=== PATIENT | male | born 1980 | race Caucasian/White ===

== ENCOUNTER 2016-11-25 15:03 | Emergency (ER) | payer SELFPAY ==
[~2016-11-25 15:03] MED LIST: Sodium Chloride 0.9% 1,000 ML BAG ONE
[2016-11-25] MEDS ORDERED: Ketorolac Tromethamine 30 MG/ML VIAL ONE (16:49)
[2016-11-25 17:04] LABS: #Basophils 0.1 thou/uL (0.0-0.2); #Lymphocytes 0.8 thou/uL (1.20-3.40); #Monocytes 0.8 thou/uL (0.11-0.59); #Neutrophils 5.6 thou/uL (1.40-6.50); %Basophils 0.8 % (0.0-1.0); %Eosinophils 0.6 % (0.0-10.0); %Lymphocytes 11.4 % (21.0-51.0); %Neutrophils 76.3 % (42.0-75.0); Hemoglobin 15.2 g/dL (14.0-18.0); Mean Corpuscular HGB CONC 34.5 g/dL (32.0-36.0); Mean Corpuscular Hemoglobin 31.8 pg (27.0-31.0); Mean Corpuscular Volume 92.2 fl (80.0-94.0); Mean Platelet Volume 7.8 fL (7.4-10.4); Platelet Count 168 thou/uL (130-400); RBC Distribution Width 11.7 % (11.5-14.5); Red Blood Cell (RBC) Count 4.78 mill/uL (4.70-6.10); White Blood Cell (WBC) Count 7.4 thou/uL (4.8-10.8)
[2016-11-25 17:16] LABS: ALT (SGPT) 19 U/L (0-55); AST (SGOT) 23 U/L (5-34); Albumin 4.3 g/dL (3.5-5.0); Alkaline Phosphatase 63 U/L (40-150); Anion Gap 20 mmol/L (10-20); BUN (Urea Nitrogen) 15 mg/dL (8.9-20.6); Bilirubin, Total 1.4 mg/dL (0.2-1.2); Calc. Creatinine Clearance 0 mL/min (70-130); Calcium 9.3 mg/dL (7.8-10.44); Carbon Dioxide 20 mmol/L (22-29); Chloride 103 mmol/L (98-107); Estimated GFR-MDRD 85; Globulin 3.4 g/dL (2.4-3.5); Glucose 90 mg/dL (70-105); Potassium 3.8 mmol/L (3.5-5.1); Protein, Total 7.7 g/dL (6.0-8.3); Sodium 139 mmol/L (136-145)
== END 2016-11-25 18:00 | disposition home or self-care (01) ==
LOC: MADERS 15:03
DX: J06.9 Acute upper respiratory infection, unspecified (principal); M79.1 Myalgia; F90.9 Attention-deficit hyperactivity disorder, unspecified type; Z87.891 Personal history of nicotine dependence
CPT/HCPCS: 80053; 85025; 96361; 96374; J1885; J7050

== ENCOUNTER 2016-12-08 10:59 | Emergency (ER) | payer SELFPAY ==
[~2016-12-08 10:59] MED LIST changes: -Sodium Chloride 0.9% 1,000 ML BAG ONE; +Sodium Chloride Irrig Solution 250 ML BOT ONE
[2016-12-08] MEDS ORDERED: Bacitracin Zinc 1 Packet ONE (11:16)
[2016-12-08] MEDS ORDERED: Bupivacaine PF 0.5% 30 ML VIAL ONE (11:17)
[2016-12-08] MEDS ORDERED: Adacel (T-DAP) 0.5 ML VIAL ONE (11:17)
[2016-12-08] MEDS ORDERED: Neosporin Ophth Soln 10 ml Bottle ONE (11:48)
[2016-12-08] MEDS ORDERED: Triple Antibiotic Oint 1 GM Packet ONE (11:48)
--- NOTE | 2016-12-08 11:52 | RAD ---
RIGHT INDEX FINGER TWO VIEWS: History: Trauma to finger. FINDINGS: There are no signs of fracture or dislocation. IMPRESSION: No evidence of fracture. POS: [facility]
== END 2016-12-08 12:05 | disposition home or self-care (01) ==
LOC: MADERS 10:59
DX: S61.210A Laceration without foreign body of right index finger without damage to nail, initial encounter (principal); Z87.891 Personal history of nicotine dependence; W31.89XA Contact with other specified machinery, initial encounter
CPT/HCPCS: 64450; 90715; S0020

== ENCOUNTER 2016-12-29 11:20 | Emergency (ER) | payer SELFPAY ==
[2016-12-29] MEDS ORDERED: Acetaminophen/Codeine 30-300mg Tablet ONE (11:48)
[2016-12-29] MEDS ORDERED: Adacel (T-DAP) 0.5 ML VIAL ONE (11:48)
[2016-12-29] MEDS ORDERED: Triple Antibiotic Ointment 15 GM TUBE ONE (12:00)
[2016-12-29] MEDS ORDERED: Triple Antibiotic Oint 1 GM Packet ONE (12:00)
== END 2016-12-29 12:10 | disposition home or self-care (01) ==
LOC: MADERS 11:20
DX: S51.811A Laceration without foreign body of right forearm, initial encounter (principal); F90.9 Attention-deficit hyperactivity disorder, unspecified type; Z87.891 Personal history of nicotine dependence; W45.8XXA Other foreign body or object entering through skin, initial encounter
CPT/HCPCS: 12001; 90471; 90715

== ENCOUNTER 2017-08-23 12:30 | Emergency (ER) | payer SELFPAY | END 2017-08-23 13:45 | disposition home or self-care (01) | LOC: MADERS 12:30 | DX: J10.1 Influenza due to other identified influenza virus with other respiratory manifestations (principal); F90.9 Attention-deficit hyperactivity disorder, unspecified type; Z87.891 Personal history of nicotine dependence | CPT/HCPCS: 99406 ==

== ENCOUNTER 2017-09-03 07:50 | Emergency (ER) | payer SELFPAY ==
[~2017-09-03 07:50] MED LIST changes: +Sodium Chloride 0.9% 1,000 ML BAG ONE; +Sodium Chloride 0.9% 100 ML BAG ONE; -Sodium Chloride Irrig Solution 250 ML BOT ONE
[2017-09-03] MEDS ORDERED: Ondansetron HCl/PF 4 MG/2 ML Vial ONE (08:31)
[2017-09-03] MEDS ORDERED: Pantoprazole 40 MG VIAL ONE ×2 (08:31→08:53)
[2017-09-03] MEDS ORDERED: Thiamine HCl 200 MG/2 ML VIAL ONE (08:31)
[2017-09-03 08:40] LABS: #Basophils 0.1 thou/uL (0.0-0.2); #Eosinphils 0.1 thou/uL (0.0-0.7); #Lymphocytes 1.8 thou/uL (1.20-3.40); #Neutrophils 7.3 thou/uL (1.40-6.50); %Basophils 0.7 % (0.0-1.0); %Eosinophils 0.7 % (0.0-10.0); %Lymphocytes 17.4 % (21.0-51.0); %Monocytes 10.1 % (0.0-10.0); Hemoglobin 17.9 g/dL (14.0-18.0); Mean Corpuscular HGB CONC 33.7 g/dL (32.0-36.0); Mean Corpuscular Hemoglobin 31.9 pg (27.0-31.0); Mean Corpuscular Volume 94.8 fl (80.0-94.0); Mean Platelet Volume 8.5 fL (7.4-10.4); Platelet Count 195 thou/uL (130-400); RBC Distribution Width 10.9 % (11.5-14.5); Red Blood Cell (RBC) Count 5.62 mill/uL (4.70-6.10); White Blood Cell (WBC) Count 10.3 thou/uL (4.8-10.8)
[2017-09-03 08:44] LABS: PTT 23.5 SEC (22.9-36.1); Prothrombin Time 13.2 SEC (12.0-14.7)
[2017-09-03 09:06] LABS: ALT (SGPT) 18 U/L (8-55); AST (SGOT) 24 U/L (5-34); Albumin 4.6 g/dL (3.5-5.0); Alkaline Phosphatase 66 U/L (40-150); Anion Gap 17 mmol/L (10-20); BUN (Urea Nitrogen) 20 mg/dL (8.9-20.6); Bilirubin, Total 1.3 mg/dL (0.2-1.2); Calc. Creatinine Clearance 0 mL/min (70-130); Calcium 9.9 mg/dL (7.8-10.44); Carbon Dioxide 30 mmol/L (22-29); Chloride 96 mmol/L (98-107); Estimated GFR-MDRD 74; Globulin 4.5 g/dL (2.4-3.5); Glucose 93 mg/dL (70-105); Potassium 3.8 mmol/L (3.5-5.1); Protein, Total 9.1 g/dL (6.0-8.3); Sodium 139 mmol/L (136-145)
--- NOTE | 2017-09-03 09:58 | RAD ---
FRONTAL RADIOGRAP CHEST UPRIGHT AND SUPINE FRONTAL IMAGING OF ABDOMEN AND PELVIS: Date: 09-03-17 Comparison: Frontal radiograph chest, 09-11-16. History: Nausea, vomiting. FINDINGS: Frontal radiograph chest demonstrates no pneumothorax, pleural fluid, focal consolidation or alveolar edema. Heart and mediastinal contours appear within normal limits. Upright imaging demonstrates no evidence for free intraperitoneal air. The bowel gas pattern appears nonobstructed. No acute osseous abnormality is evident. IMPRESSION: No radiographic evidence of acute cardiopulmonary disease, free intraperitoneal air or small bowel ob struction. POS: [facility]
== END 2017-09-03 09:35 | disposition short-term general hospital (02) ==
LOC: MADERS 07:50
DX: K92.2 Gastrointestinal hemorrhage, unspecified (principal); F90.9 Attention-deficit hyperactivity disorder, unspecified type; Z87.891 Personal history of nicotine dependence
CPT/HCPCS: 74022; 80053; 82274; 85025; 85610; 85730; 86850; 86900; 86901; 96365; 96375; C9113; J2405; J3411; J7050

== ENCOUNTER 2017-11-10 09:44 | Emergency (ER) | payer SELFPAY ==
[2017-11-10] MEDS ORDERED: Acetaminophen 325 MG Suppository ONE (10:10)
[2017-11-10] MEDS ORDERED: Acetaminophen 325 MG TAB ONE (10:11)
[2017-11-10 10:31] LABS: Bilirubin Negative (Negative); Blood, Urine Negative (Negative); Clarity Clear (Clear); Glucose, Urine (Dipstick) Negative (Negative); Leukocyte Negative (Negative); Nitrite Negative (Negative); Protein, Urine (Dipstick) 30 mg/dL (Neg-Trace); pH, Urine 7.5 (5.0-9.0)
[2017-11-10 10:40] LABS: RBC/HPF None Seen HPF (0-3); Squamous Epithelial 0-3 HPF (0-3); WBC/HPF None Seen HPF (0-3)
== END 2017-11-10 11:06 | disposition home or self-care (01) ==
LOC: MADERS 09:44
DX: J11.1 Influenza due to unidentified influenza virus with other respiratory manifestations (principal); G43.909 Migraine, unspecified, not intractable, without status migrainosus; F17.210 Nicotine dependence, cigarettes, uncomplicated; F90.9 Attention-deficit hyperactivity disorder, unspecified type
CPT/HCPCS: 81003; 81015; 99283

== ENCOUNTER 2018-01-20 11:18 | Emergency (ER) | payer SELFPAY ==
[~2018-01-20 11:18] MED LIST changes: -Sodium Chloride 0.9% 100 ML BAG ONE
[2018-01-20] MEDS ORDERED: Ondansetron HCl/PF 4 MG/2 ML Vial ONE (11:44)
[2018-01-20] MEDS ORDERED: diphenhydrAMINE 50 MG/ML VIAL ONE (11:44)
[2018-01-20] MEDS ORDERED: Metoclopramide HCl 10 MG/2 ML VIAL ONE (11:44)
[2018-01-20] MEDS ORDERED: Ketorolac Tromethamine 30 MG/ML VIAL ONE (11:44)
--- NOTE | 2018-01-20 12:16 | CT ---
NONCONTRAST HEAD CT: HISTORY: Trauma and pain for multiple days. The patient fell three days ago, landing on the back of the head. COMPARISON: None. TECHNIQUE: A noncontrast head CT is performed from the skull base to the skull vertex. FINDINGS: No parenchymal hemorrhage. No extraaxial hematoma. No midline shift. The basilar cisterns are gill nt. Brain volume is age appropriate. Cortical rivera white matter differentiation is preserved. The ventricles and sulci are patent and symmetric. The calvarium is intact. No significant opacification of the sinuses or mastoid air cells. There is a nonspecific metallic density inferior and lateral to the right globe. Correlate for forei gn body. IMPRESSION: 1. No intracranial post traumatic sequelae. 2. Metallic foreign body in the inferolateral aspect of the right orbit. Clinical correlation is es sential. POS: [facility]
== END 2018-01-20 13:05 | disposition home or self-care (01) ==
LOC: MADERS 11:18
DX: F07.81 Postconcussional syndrome (principal); G43.909 Migraine, unspecified, not intractable, without status migrainosus; F17.210 Nicotine dependence, cigarettes, uncomplicated; F90.9 Attention-deficit hyperactivity disorder, unspecified type
CPT/HCPCS: 70450; 96361; 96374; 96375; J1200; J1885; J2405; J2765; J7050

== ENCOUNTER 2018-04-17 16:39 | Emergency (ER) | payer SELFPAY ==
[2018-04-17] MEDS ORDERED: AMOXicillin 250 MG CAP ONE (17:34)
[2018-04-17] MEDS ORDERED: Ibuprofen 800 MG TAB ONE (17:34)
== END 2018-04-17 18:40 | disposition home or self-care (01) ==
LOC: MADERS 16:39
DX: K04.7 Periapical abscess without sinus (principal); K02.9 Dental caries, unspecified; K03.81 Cracked tooth; G43.909 Migraine, unspecified, not intractable, without status migrainosus; F90.9 Attention-deficit hyperactivity disorder, unspecified type; F17.210 Nicotine dependence, cigarettes, uncomplicated
CPT/HCPCS: 99282

== ENCOUNTER 2018-05-16 11:09 | Emergency (ER) | payer SELFPAY ==
[2018-05-16] MEDS ORDERED: Ketorolac Tromethamine 60 MG/2 ML VIAL ONE (11:37)
[2018-05-16] MEDS ORDERED: Ondansetron HCl/PF 4 MG/2 ML Vial ONE (11:37)
== END 2018-05-16 12:01 | disposition home or self-care (01) ==
LOC: MADERS 11:09
DX: G43.909 Migraine, unspecified, not intractable, without status migrainosus (principal); F90.9 Attention-deficit hyperactivity disorder, unspecified type; F17.210 Nicotine dependence, cigarettes, uncomplicated
CPT/HCPCS: 96372; J1885; J2405

== ENCOUNTER 2018-06-07 08:37 | Emergency (ER) | payer SELFPAY ==
[2018-06-07] MEDS ORDERED: Fentanyl 100 MCG/2 ML VIAL ONE (09:08)
[2018-06-07] MEDS ORDERED: Ondansetron ODT 4 MG TAB ONE (09:08)
[2018-06-07] MEDS ORDERED: Ketorolac Tromethamine 60 MG/2 ML VIAL ONE (09:08)
[2018-06-07] MEDS ORDERED: Famotidine 20 MG TAB ONE (09:08)
[2018-06-07 09:25] LABS: #Basophils 0.1 thou/uL (0.0-0.2); #Eosinphils 0.1 thou/uL (0.0-0.7); #Lymphocytes 1.4 thou/uL (1.20-3.40); #Monocytes 0.6 thou/uL (0.11-0.59); #Neutrophils 3.2 thou/uL (1.40-6.50); %Basophils 1.1 % (0.0-1.0); %Eosinophils 1.6 % (0.0-10.0); %Lymphocytes 26.1 % (21.0-51.0); %Monocytes 11.8 % (0.0-10.0); %Neutrophils 59.5 % (42.0-75.0); Hemoglobin 14.7 g/dL (14.0-18.0); Mean Corpuscular HGB CONC 33.7 g/dL (32.0-36.0); Mean Corpuscular Hemoglobin 31.1 pg (27.0-31.0); Mean Corpuscular Volume 92.2 fL (78.0-98.0); Mean Platelet Volume 7.6 fL (7.4-10.4); Platelet Count 157 thou/uL (130-400); RBC Distribution Width 10.9 % (11.5-14.5); Red Blood Cell (RBC) Count 4.72 mill/uL (4.70-6.10); White Blood Cell (WBC) Count 5.4 thou/uL (4.8-10.8)
[2018-06-07 09:34] LABS: Anion Gap 13 mmol/L (10-20); BUN (Urea Nitrogen) 12 mg/dL (8.9-20.6); Calc. Creatinine Clearance 0 mL/min (70-130); Calcium 9.2 mg/dL (7.8-10.44); Carbon Dioxide 25 mmol/L (22-29); Chloride 105 mmol/L (98-107); Estimated GFR-MDRD Greater than 90; Glucose 80 mg/dL (70-105); Potassium 4.3 mmol/L (3.5-5.1); Sodium 139 mmol/L (136-145)
== END 2018-06-07 09:55 | disposition home or self-care (01) ==
LOC: MADERS 08:37
DX: K21.0 Gastro-esophageal reflux disease with esophagitis (principal); G43.909 Migraine, unspecified, not intractable, without status migrainosus; F90.9 Attention-deficit hyperactivity disorder, unspecified type; F17.210 Nicotine dependence, cigarettes, uncomplicated
CPT/HCPCS: 36415; 80048; 85025; 96372; J1885; J3010; Q0162

== ENCOUNTER 2018-07-11 06:39 | Emergency (ER) | payer SELFPAY ==
[2018-07-11] MEDS ORDERED: Ondansetron ODT 4 MG TAB ONE (07:03)
[2018-07-11] MEDS ORDERED: Ketorolac Tromethamine 60 MG/2 ML VIAL ONE (07:03)
[2018-07-11] MEDS ORDERED: Prochlorperazine 10 MG/2 ML VIAL ONE (07:03)
[2018-07-11] MEDS ORDERED: diphenhydrAMINE 50 MG/ML VIAL ONE (07:03)
== END 2018-07-11 08:00 | disposition home or self-care (01) ==
LOC: MADERS 06:39
DX: G43.909 Migraine, unspecified, not intractable, without status migrainosus (principal); F90.9 Attention-deficit hyperactivity disorder, unspecified type; F17.210 Nicotine dependence, cigarettes, uncomplicated
CPT/HCPCS: 96372; J0780; J1200; J1885; Q0162

== ENCOUNTER 2018-07-18 12:03 | Emergency (ER) | payer SELFPAY ==
[~2018-07-18 12:03] MED LIST changes: -Sodium Chloride 0.9% 1,000 ML BAG ONE; +Sodium Chloride Irrig Solution 250 ML BOT ONE
[2018-07-18] MEDS ORDERED: Bupivacaine PF 0.5% 30 ML VIAL ONE (12:11)
--- NOTE | 2018-07-18 13:18 | RAD ---
THREE VIEWS RIGHT MIDDLE FINGER: Date: 07-18-18 Comparison: 12-08-16 History: Injury, trauma, pain. FINDINGS: No radiopaque foreign body, acute fracture, or evidence of dislocation. Stable irregularity of the di stal aspect of the distal phalanx suggest a remote fracture. IMPRESSION: No acute fracture or dislocation seen. POS: [facility]
== END 2018-07-18 13:35 | disposition home or self-care (01) ==
LOC: MADERS 12:03
DX: S61.212A Laceration without foreign body of right middle finger without damage to nail, initial encounter (principal); G43.909 Migraine, unspecified, not intractable, without status migrainosus; F90.9 Attention-deficit hyperactivity disorder, unspecified type; F17.210 Nicotine dependence, cigarettes, uncomplicated; W27.0XXA Contact with workbench tool, initial encounter
CPT/HCPCS: 12002; 99406; S0020

== ENCOUNTER 2018-12-22 18:48 | Emergency (ER) | payer SELFPAY ==
[~2018-12-22 18:48] MED LIST changes: +Iopamidol 370 76% 100 ML VIAL ONE; -Sodium Chloride Irrig Solution 250 ML BOT ONE
[2018-12-22] MEDS ORDERED: Ketorolac Tromethamine 30 MG/ML VIAL ONE (18:51)
[2018-12-22] MEDS ORDERED: Ondansetron PF 4 MG/2 ML Vial ONE (18:51)
[2018-12-22] MEDS ORDERED: Mag-Al Plus 1200 MG/1200 MG/120 MG/30 ML UDCUP ONE (18:59)
[2018-12-22] MEDS ORDERED: Lidocaine Viscous Sol 2% 15 ml UD Cup ONE (18:59)
[2018-12-22] MEDS ORDERED: Sodium Chloride 0.9% 1,000 ML ONE (19:07)
[2018-12-22] MEDS ORDERED: Morphine 10 MG/ML VIAL ONE (19:08)
[2018-12-22 19:54] LABS: #Basophils 0.1 thou/uL (0.0-0.2); #Eosinphils 0.1 thou/uL (0.0-0.7); #Lymphocytes 1.8 thou/uL (1.20-3.40); #Monocytes 0.6 thou/uL (0.11-0.59); #Neutrophils 6.9 thou/uL (1.40-6.50); %Basophils 0.7 % (0.0-1.0); %Eosinophils 1.4 % (0.0-10.0); %Lymphocytes 18.6 % (21.0-51.0); %Monocytes 6.5 % (0.0-10.0); %Neutrophils 72.9 % (42.0-75.0); Hemoglobin 16.6 g/dL (14.0-18.0); Mean Corpuscular Hemoglobin 30.7 pg (27.0-31.0); Mean Corpuscular Volume 92.9 fL (78.0-98.0); Mean Platelet Volume 7.9 fL (7.4-10.4); Platelet Count 220 thou/uL (130-400); RBC Distribution Width 11.6 % (11.5-14.5); Red Blood Cell (RBC) Count 5.43 mill/uL (4.70-6.10); White Blood Cell (WBC) Count 9.5 thou/uL (4.8-10.8)
[2018-12-22 20:08] LABS: ALT (SGPT) 28 U/L (8-55); AST (SGOT) 36 U/L (5-34); Albumin 4.9 g/dL (3.5-5.0); Alkaline Phosphatase 66 U/L (40-150); Anion Gap 17 mmol/L (10-20); BUN (Urea Nitrogen) 14 mg/dL (8.9-20.6); Bilirubin, Total 0.7 mg/dL (0.2-1.2); Calc. Creatinine Clearance 0 mL/min (70-130); Calcium 10.4 mg/dL (7.8-10.44); Carbon Dioxide 22 mmol/L (22-29); Chloride 105 mmol/L (98-107); Estimated GFR-MDRD 85; Glucose 105 mg/dL (70-105); Lipase 166 U/L (8-78); Potassium 4.3 mmol/L (3.5-5.1); Protein, Total 8.9 g/dL (6.0-8.3); Sodium 140 mmol/L (136-145)
--- NOTE | 2018-12-22 21:29 | CT ---
CT ABDOMEN AND PELVIS WITH IV CONTRAST 12/22/18 HISTORY: Abdominal pain with vomiting. History of appendectomy. COMPARISON: 03/02/[address] thorax on 09/03/17. The lung bases remain clear. There is suggestion of minimal biliary ductal dilatation. The common teena t is not dilated. The exact etiology for this finding is uncertain. The liver otherwise has a normal CT appearance. The spleen, pancreas, bilateral adrenal glands, right kidney, abdominal aorta, and urinary bladder de monstrate a normal CT appearance. An inferior pole left renal cyst is again seen and stable in size. Nonspecific fluid filled loops of bowel are noted, but no dilated loops of small bowel are appreciate d. There are surgical clips seen in the right lower quadrant stable from prior study and may be secondar y to patient's history of prior appendectomy. No free fluid, fluid collection, or lymphadenopathy is seen in the abdomen or pelvis. There has been no other interval change when compared to prior study. IMPRESSION: 1. Suggestion of trace amount of biliary ductal dilatation of uncertain etiology. The common teena t is normal in caliber, and the gallbladder is not distended. Correlation with liver function test is recommended. 2. Slight compression deformity of the superior end plate of the T11 vertebral body suggesting a minimal compression fracture of indeterminate age. This was not seen on prior study in 2017. 3. Small left renal cyst. POS: [facility]
[2018-12-22] MEDS ORDERED: Metoclopramide HCl 10 MG/2 ML VIAL ONE (21:47)
[2018-12-22] MEDS ORDERED: Sodium Chloride 0.9% 100 ML ONE (21:47)
== END 2018-12-22 22:20 | disposition home or self-care (01) ==
LOC: MADERS 18:48
DX: R10.9 Unspecified abdominal pain (principal); R11.2 Nausea with vomiting, unspecified; G43.909 Migraine, unspecified, not intractable, without status migrainosus; F90.9 Attention-deficit hyperactivity disorder, unspecified type; F17.210 Nicotine dependence, cigarettes, uncomplicated
CPT/HCPCS: 74177; 80053; 83605; 83690; 85025; 96361; 96374; 96375; J1885; J2270; J2405; J2765; J7050; Q9967

== ENCOUNTER 2019-06-26 09:23 | Emergency (ER) | payer SELFPAY ==
--- NOTE | 2019-06-26 11:10 | RAD ---
RIGHT HAND 3 VIEWS: Date: 06/26/19 HISTORY: Patient hit wall with hand. FINDINGS: There is a boxer's type fracture of the fifth metacarpal. No other fracture is visualized. IMPRESSION: Boxer's fracture. POS: [facility]
--- NOTE | 2019-06-26 11:11 | RAD ---
LEFT HAND 3 VIEWS: Date: 06/26/19 HISTORY: Trauma to hand. FINDINGS: There is a boxer's type fracture of the fifth metacarpal which appears acute. Some deformity to the f ifth metacarpal also suggests there may have been a previous injury. An old ulnar styloid avulsion in jury is seen. No additional findings. IMPRESSION: Acute boxer's fracture. POS: [facility]
== END 2019-06-26 10:45 | disposition home or self-care (01) ==
LOC: MADERS 09:23
DX: S62.307A Unspecified fracture of fifth metacarpal bone, left hand, initial encounter for closed fracture (principal); S62.306A Unspecified fracture of fifth metacarpal bone, right hand, initial encounter for closed fracture; F90.9 Attention-deficit hyperactivity disorder, unspecified type; F17.210 Nicotine dependence, cigarettes, uncomplicated; W22.01XA Walked into wall, initial encounter
CPT/HCPCS: J7620

== ENCOUNTER 2019-12-29 16:03 | Emergency (ER) | payer SELFPAY ==
--- NOTE | 2019-12-29 16:46 | RAD ---
CHEST ONE VIEW: 12/29/19 INDICATION: History of dyspnea. COMPARISON: Prior exam 09/03/17. FINDINGS: The lungs are clear. Heart size is normal. No acute osseous abnormality is evident. IMPRESSION: No acute cardiopulmonary abnormality. POS: [facility]
== END 2019-12-29 17:22 | disposition home or self-care (01) ==
LOC: MADERS 16:03
DX: J02.9 Acute pharyngitis, unspecified (principal); F90.9 Attention-deficit hyperactivity disorder, unspecified type; F17.210 Nicotine dependence, cigarettes, uncomplicated; Z71.6 Tobacco abuse counseling
CPT/HCPCS: 71045; 87081; 87430; 99406

== ENCOUNTER 2020-06-18 06:45 | Emergency (ER) | payer BC, SELFPAY ==
[2020-06-18] MEDS ORDERED: Ondansetron PF 4 MG/2 ML Vial ONE (07:15)
[2020-06-18 07:16] LABS: #Basophils 0.1 thou/uL (0.0-0.2); #Eosinphils 0.3 thou/uL (0.0-0.7); #Lymphocytes 2.5 thou/uL (1.20-3.40); #Monocytes 0.7 thou/uL (0.11-0.59); #Neutrophils 2.3 thou/uL (1.40-6.50); %Basophils 1.6 % (0.0-1.0); %Eosinophils 5.5 % (0.0-10.0); %Lymphocytes 42.2 % (21.0-51.0); %Monocytes 11.7 % (0.0-10.0); %Neutrophils 39.1 % (42.0-75.0); Hemoglobin 16.3 g/dL (14.0-18.0); Mean Corpuscular Hemoglobin 29.9 pg (27.0-31.0); Mean Corpuscular Volume 93.6 fL (78.0-98.0); Mean Platelet Volume 7.6 fL (7.4-10.4); Platelet Count 223 thou/uL (130-400); RBC Distribution Width 11.5 % (11.5-14.5); Red Blood Cell (RBC) Count 5.46 mill/uL (4.70-6.10); White Blood Cell (WBC) Count 5.8 thou/uL (4.8-10.8)
[2020-06-18] MEDS ORDERED: Sodium Chloride 0.9% 1,000 ML BAG ONE (07:21)
[2020-06-18 07:26] LABS: ALT (SGPT) 15 U/L (8-55); AST (SGOT) 21 U/L (5-34); Albumin 4.1 g/dL (3.5-5.0); Alkaline Phosphatase 69 U/L (40-110); Anion Gap 16 mmol/L (10-20); BUN (Urea Nitrogen) 12 mg/dL (8.9-20.6); Bilirubin, Total 0.8 mg/dL (0.2-1.2); CK (CPK) 86 U/L (30-200); Calc. Creatinine Clearance 0 mL/min (70-130); Calcium 9.4 mg/dL (7.8-10.44); Carbon Dioxide 26 mmol/L (22-29); Chloride 102 mmol/L (98-107); Estimated GFR-MDRD 72; Globulin 3.8 g/dL (2.4-3.5); Glucose 89 mg/dL (70-105); Potassium 4.3 mmol/L (3.5-5.1); Protein, Total 7.9 g/dL (6.0-8.3); Sodium 140 mmol/L (136-145)
--- NOTE | 2020-06-18 07:47 | RAD ---
EXAM: Single view of the chest HISTORY: Chest pain COMPARISON: 12/29/2019 FINDINGS: Single view of the chest shows a normal sized cardiomediastinal silhouette. There is no jenn dence of consolidation, mass, or pleural effusion. Degenerative changes are seen in the spine. IMPRESSION: No evidence of acute cardiopulmonary disease
[2020-06-18 07:48] LABS: Bilirubin Negative (Negative); Blood, Urine Negative (Negative); Clarity Slightly Cloudy (Clear); Glucose, Urine (Dipstick) Negative (Negative); Ketone, Urine Negative (Negative); Leukocyte Negative (Negative); Nitrite Negative (Negative); Protein, Urine (Dipstick) Negative (Neg-Trace)
[2020-06-18 07:54] LABS: Amphetamine Detected (NotDetected); Cocaine Metabolite Screen Detected (NotDetected); Opiate Screen Not Detected (NotDetected); Phencyclidine (PCP) Not Detected (NotDetected); THC/Cannabinoid Screen Detected (NotDetected)
[2020-06-18 07:55] LABS: Barbiturates Screen Not Detected (NotDetected); Benzodiazepine Screen Not Detected (NotDetected); Medtox Control Line Valid? VALID (VALID); Methadone Not Detected (NotDetected); Methamphetamine Not Detected (NotDetected); Oxycodone Screen Not Detected (NotDetected); Tricyclic Screen Not Detected (NotDetected)
== END 2020-06-18 08:10 | disposition home or self-care (01) ==
LOC: MADERS 06:45
DX: R07.1 Chest pain on breathing (principal); F12.10 Cannabis abuse, uncomplicated; F14.10 Cocaine abuse, uncomplicated; R11.2 Nausea with vomiting, unspecified; M79.10 Myalgia, unspecified site; G43.909 Migraine, unspecified, not intractable, without status migrainosus; F90.9 Attention-deficit hyperactivity disorder, unspecified type; F17.210 Nicotine dependence, cigarettes, uncomplicated
CPT/HCPCS: 71045; 80053; 80306; 81003; 82550; 82553; 84484; 85025; 93005; 94760; 96361; 96374; J2405; J7050

== ENCOUNTER 2021-03-11 10:44 | Emergency (ER) | payer SELFPAY ==
[2021-03-11 11:55] LABS: #Basophils 0.1 thou/uL (0.0-0.2); #Eosinphils 0.1 thou/uL (0.0-0.7); #Lymphocytes 1.6 thou/uL (1.20-3.40); #Monocytes 1.3 thou/uL (0.11-0.59); #Neutrophils 10.8 thou/uL (1.40-6.50); %Basophils 0.5 % (0.0-1.0); %Eosinophils 0.8 % (0.0-10.0); %Lymphocytes 11.2 % (21.0-51.0); %Monocytes 9.3 % (0.0-10.0); %Neutrophils 78.1 % (42.0-75.0); Hemoglobin 13.7 g/dL (14.0-18.0); Mean Corpuscular HGB CONC 32.6 g/dL (32.0-36.0); Mean Corpuscular Hemoglobin 30.6 pg (27.0-31.0); Mean Corpuscular Volume 93.7 fL (78.0-98.0); Mean Platelet Volume 8.1 fL (7.4-10.4); Platelet Count 287 thou/uL (130-400); RBC Distribution Width 11.1 % (11.5-14.5); Red Blood Cell (RBC) Count 4.49 mill/uL (4.70-6.10); White Blood Cell (WBC) Count 13.9 thou/uL (4.8-10.8)
[2021-03-11] MEDS ORDERED: Morphine 2 MG/ML VIAL ONE (12:10)
[2021-03-11] MEDS ORDERED: Morphine 4 MG/ML VIAL ONE (12:10)
[2021-03-11 12:15] LABS: ALT (SGPT) 14 U/L (8-55); AST (SGOT) 19 U/L (5-34); Albumin 3.3 g/dL (3.5-5.0); Alkaline Phosphatase 66 U/L (40-110); Anion Gap 11 mmol/L (10-20); BUN (Urea Nitrogen) 11 mg/dL (8.9-20.6); Bilirubin, Total 0.6 mg/dL (0.2-1.2); Calc. Creatinine Clearance 0 mL/min (70-130); Carbon Dioxide 28 mmol/L (22-29); Chloride 102 mmol/L (98-107); Glucose 102 mg/dL (70-105); Potassium 4.2 mmol/L (3.5-5.1); Protein, Total 7.3 g/dL (6.0-8.3); Sodium 137 mmol/L (136-145)
[2021-03-11 12:51] LABS: Bilirubin Negative (Negative); Blood, Urine Trace (Negative); Clarity Slightly Cloudy (Clear); Glucose, Urine (Dipstick) Negative (Negative); Ketone, Urine Negative (Negative); Leukocyte Trace (Negative); Nitrite Negative (Negative); Protein, Urine (Dipstick) Negative (Neg-Trace); Specific Gravity, Urine 1.015 (1.005-1.030); pH, Urine 8.5 (5.0-9.0)
[2021-03-11] MEDS ORDERED: Iopamidol 370 76% 100 ML VIAL ONE (12:53)
[2021-03-11 12:55] LABS: RBC/HPF 0-3 HPF (0-3); Squamous Epithelial 0-3 HPF (0-3)
[2021-03-11 12:56] LABS: Bacteria/HPF Rare-Few HPF (None Seen)
[2021-03-11] MEDS ORDERED: cefTRIAXone\\ROCEPHIN 500 MG VIAL ONE (13:32)
[2021-03-11] MEDS ORDERED: Doxycycline 100 MG CAP ONE (13:32)
[2021-03-11] MEDS ORDERED: Sterile Water 10 ML ONE (13:32)
[2021-03-13 21:43] LABS: Chlam.trachomatis by PCR,Urine Not Detected (NotDetected)
== END 2021-03-11 14:00 | disposition home or self-care (01) ==
LOC: MADERS 10:44
DX: N41.9 Inflammatory disease of prostate, unspecified (principal); N45.1 Epididymitis; F17.210 Nicotine dependence, cigarettes, uncomplicated; F17.290 Nicotine dependence, other tobacco product, uncomplicated
CPT/HCPCS: 72193; 76870; 80053; 81003; 81015; 83605; 85025; 87491; 87591; 93976; 96372; 96374; J0696; J2270; Q9967

== ENCOUNTER 2022-07-19 16:28 | Emergency (ER) | payer SELFPAY ==
[2022-07-19] MEDS ORDERED: predniSONE 20 MG TAB ONE (17:04)
[2022-07-19] MEDS ORDERED: diphenhydrAMINE 25 MG CAP ONE (17:04)
[2022-07-19] MEDS ORDERED: Ketorolac Tromethamine 60 MG/2 ML VIAL ONE (17:04)
== END 2022-07-19 18:57 | disposition home or self-care (01) ==
LOC: MADERS 16:28
DX: J34.1 Cyst and mucocele of nose and nasal sinus (principal); G43.909 Migraine, unspecified, not intractable, without status migrainosus; F17.210 Nicotine dependence, cigarettes, uncomplicated
CPT/HCPCS: 70450; 70486; 96372; J1885; J7512

== ENCOUNTER 2022-08-23 13:54 | Emergency (ER) | payer SELFPAY ==
[2022-08-23] MEDS ORDERED: Iopamidol 370 76% 100 ML VIAL ONE (14:07)
[2022-08-23 15:27] LABS: #Basophils 0.1 thou/uL (0.0-0.2); #Eosinphils 0.1 thou/uL (0.0-0.7); #Lymphocytes 1.8 thou/uL (1.20-3.40); #Monocytes 0.8 thou/uL (0.11-0.59); #Neutrophils 3.1 thou/uL (1.40-6.50); %Basophils 1.4 % (0.0-1.0); %Eosinophils 1.4 % (0.0-10.0); %Lymphocytes 30.6 % (21.0-51.0); %Monocytes 13.5 % (0.0-10.0); %Neutrophils 53.1 % (42.0-75.0); Hemoglobin 14.7 g/dL (14.0-18.0); Mean Corpuscular HGB CONC 34.2 g/dL (32.0-36.0); Mean Corpuscular Hemoglobin 31.5 pg (27.0-31.0); Mean Corpuscular Volume 92.3 fl (78.0-98.0); Mean Platelet Volume 9.1 fL (7.4-10.4); Platelet Count 197 10x3/uL (130-400); RBC Distribution Width 10.6 % (11.5-14.5); Red Blood Cell (RBC) Count 4.65 mill/uL (4.70-6.10); White Blood Cell (WBC) Count 5.8 10x3/uL (4.8-10.8)
[2022-08-23] MEDS ORDERED: Lidocaine Viscous Sol 2% 15 ml UD Cup ONE (15:29)
[2022-08-23] MEDS ORDERED: Mag-Al Plus 1200 MG/1200 MG/120 MG/30 ML UDCUP ONE (15:29)
[2022-08-23] MEDS ORDERED: Pantoprazole 40 MG VIAL ONE (15:29)
[2022-08-23] MEDS ORDERED: Sucralfate 1 GM TAB ONE (15:29)
[2022-08-23 15:46] LABS: ALT (SGPT) 11 U/L (8-55); AST (SGOT) 20 U/L (5-34); Albumin 4.3 g/dL (3.5-5.0); Alkaline Phosphatase 57 U/L (40-110); Anion Gap 16 mmol/L (10-20); BUN (Urea Nitrogen) 12 mg/dL (8.9-20.6); Bilirubin, Total 1.9 mg/dL (0.2-1.2); CK (CPK) 153 U/L (30-200); Calc. Creatinine Clearance 0 mL/min (70-130); Calcium 9.2 mg/dL (7.8-10.44); Carbon Dioxide 20 mmol/L (22-29); Chloride 105 mmol/L (98-107); Estimated GFR 110; Globulin 3.4 g/dL (2.4-3.5); Glucose 94 mg/dL (70-105); Lipase 14 U/L (8-78); Potassium 3.5 mmol/L (3.5-5.1); Protein, Total 7.7 g/dL (6.0-8.3); Sodium 137 mmol/L (136-145)
[2022-08-23] MEDS ORDERED: Dicyclomine 20 MG/2 ML VIAL ONE (16:51)
[2022-08-23] MEDS ORDERED: Ketorolac Tromethamine 30 MG/ML VIAL ONE (16:51)
[2022-08-23 16:54] LABS: Bilirubin Negative (Negative); Blood, Urine Negative (Negative); Clarity Clear (Clear); Glucose, Urine (Dipstick) Negative (Negative); Ketone, Urine Trace mg/dL (Negative); Leukocyte Negative (Negative); Nitrite Negative (Negative); Protein, Urine (Dipstick) Negative (Neg-Trace)
== END 2022-08-23 17:48 | disposition home or self-care (01) ==
LOC: MADERS 13:54
DX: G89.29 Other chronic pain (principal); R10.11 Right upper quadrant pain; R10.13 Epigastric pain; G43.909 Migraine, unspecified, not intractable, without status migrainosus; F17.220 Nicotine dependence, chewing tobacco, uncomplicated; F17.290 Nicotine dependence, other tobacco product, uncomplicated
CPT/HCPCS: 36415; 74177; 80053; 81003; 82550; 83605; 83690; 84484; 85025; 96372; 96374; 96375; C9113; J1885; Q9967

== ENCOUNTER 2023-05-26 20:02 | Emergency (ER) | payer SELFPAY ==
[2023-05-26] MEDS ORDERED: Tetracaine 0.5% PF 4 ML BOT ONE (20:13)
[2023-05-26] MEDS ORDERED: Fluorescein Opthalmic Strip ONE (20:13)
== END 2023-05-26 21:19 | disposition home or self-care (01) ==
LOC: MADERS 20:02
DX: S05.02XA Injury of conjunctiva and corneal abrasion without foreign body, left eye, initial encounter (principal); S05.01XA Injury of conjunctiva and corneal abrasion without foreign body, right eye, initial encounter; H16.133 Photokeratitis, bilateral; F17.210 Nicotine dependence, cigarettes, uncomplicated; X08.8XXA Exposure to other specified smoke, fire and flames, initial encounter
CPT/HCPCS: 99283

== ENCOUNTER 2024-02-15 13:40 | Emergency (ER) | payer OTHER ==
[2024-02-15] MEDS ORDERED: Ketorolac Tromethamine 30 MG (1 mL) VIAL ONE (15:19)
[2024-02-15] MEDS ORDERED: HYDROcodone/Acetaminophen 10/325 mg Tablet ONE (15:43)
== END 2024-02-15 16:33 | disposition home or self-care (01) ==
LOC: MADERS 13:40
DX: S22.42XD Multiple fractures of ribs, left side, subsequent encounter for fracture with routine healing (principal); F17.290 Nicotine dependence, other tobacco product, uncomplicated; W18.30XD Fall on same level, unspecified, subsequent encounter
CPT/HCPCS: 71046; 96372; J1885

== ENCOUNTER 2024-02-22 08:24 | Outpatient (CLI) | payer OTHER | END 2024-02-22 08:25 | disposition home or self-care (01) | LOC: MADRAD 08:24 | PROVIDERS: ATTEND Surgery | DX: S22.42XA Multiple fractures of ribs, left side, initial encounter for closed fracture (principal) | CPT/HCPCS: 71046 ==

== ENCOUNTER 2024-02-22 14:24 | Emergency (ER) | payer SELFPAY ==
[2024-02-22] MEDS ORDERED: Ondansetron ODT 4 MG TAB ONE (15:29)
[2024-02-22] MEDS ORDERED: Morphine 4 MG/ML VIAL ONE (15:30)
== END 2024-02-22 16:10 | disposition home or self-care (01) ==
LOC: MADERS 14:24
DX: S22.42XD Multiple fractures of ribs, left side, subsequent encounter for fracture with routine healing (principal); G89.21 Chronic pain due to trauma; W18.30XD Fall on same level, unspecified, subsequent encounter
CPT/HCPCS: 96372; 99283; J2270; Q0162

== ENCOUNTER 2024-03-15 11:53 | Outpatient (CLI) | payer OTHER | END 2024-03-15 11:54 | disposition home or self-care (01) | LOC: MADRAD 11:53 | PROVIDERS: ATTEND Neurological Surgery | DX: S22.089A Unspecified fracture of T11-T12 vertebra, initial encounter for closed fracture (principal); S22.079A Unspecified fracture of T9-T10 vertebra, initial encounter for closed fracture | CPT/HCPCS: 72070 ==

== ENCOUNTER 2024-04-10 11:14 | Outpatient (CLI) | payer OTHER | END 2024-04-10 11:15 | disposition home or self-care (01) | LOC: MADLAB 11:14 | PROVIDERS: ATTEND Physician Assistant | DX: S22.009A Unspecified fracture of unspecified thoracic vertebra, initial encounter for closed fracture (principal) | CPT/HCPCS: 72070 ==

== ENCOUNTER 2024-08-25 20:52 | Emergency (ER) | payer OTHER, SELFPAY | END 2024-08-25 21:35 | disposition home or self-care (01) | LOC: MADERS 20:52 | DX: S61.216A Laceration without foreign body of right little finger without damage to nail, initial encounter (principal); F17.290 Nicotine dependence, other tobacco product, uncomplicated; W26.0XXA Contact with knife, initial encounter | CPT/HCPCS: 12001; 99282 ==

== ENCOUNTER 2024-08-27 12:53 | Emergency (ER) | payer SELFPAY ==
[2024-08-27] MEDS ORDERED: Ketorolac Tromethamine 30 MG (1 mL) VIAL ONE (13:39)
[2024-08-27] MEDS ORDERED: Amoxicillin/Potassium Clav 875 MG TAB ONE (13:39)
== END 2024-08-27 13:50 | disposition home or self-care (01) ==
LOC: MADERS 12:53
DX: K04.7 Periapical abscess without sinus (principal); K08.89 Other specified disorders of teeth and supporting structures; F17.290 Nicotine dependence, other tobacco product, uncomplicated
CPT/HCPCS: 96372; 99282; J1885

== ENCOUNTER 2025-08-22 13:31 | Emergency (ER) | payer OTHER | END 2025-08-22 14:18 | disposition home or self-care (01) | LOC: MADERS 13:31 | DX: M54.6 Pain in thoracic spine (principal); G89.29 Other chronic pain; F17.290 Nicotine dependence, other tobacco product, uncomplicated | CPT/HCPCS: 96372; 99283; J1885; J3010 ==